=== PATIENT | male | born 1990 | race Caucasian/White ===

== ENCOUNTER 2021-04-23 12:38 | Outpatient (REF) | payer OTHER, SELFPAY | END 2021-04-23 12:39 | disposition home or self-care (01) | LOC: HO.LAB 12:38 | PROVIDERS: Visit Provider Internal Medicine | DX: Z20.822 Contact with and (suspected) exposure to COVID-19 (principal) | CPT/HCPCS: C9803; U0003; U0005 ==

== ENCOUNTER 2022-01-03 09:06 | Emergency (ER) | payer SELFPAY ==
--- NOTE | ~2022-01-03 | US_ITS ---
EXAMINATION: UNILATERAL TRIPLEX SCANNING OF THE RIGHT LOWER EXTREMITY CLINICAL INFORMATION: Right lower extremity swelling. COMPARISON: None. TECHNIQUE: Color-flow triplex imaging with spectral analysis and compression Doppler were performed on the right lower extremity. FINDINGS: Respiratory variation, normal compression and augmented flow are noted throughout the lower extremity. The visualized common femoral vein, superficial femoral vein, profunda femoral vein, popliteal vein and mid calf peroneal and posterior tibial venous segments show no evidence of deep venous thrombosis. There is no Mcgee's cyst. US/US venous duplex LE RT IMPRESSION: Normal triplex scan without evidence of deep venous thrombosis involving the right lower extremity. Incidental mildly enlarged lymph node in the right groin.
[2022-01-03 09:09] VITALS: BP 132/88; PULSE 84; RESP 17; TEMP 35.7; O2SAT 98; BMI 40.4
--- NOTE | 2022-01-03 09:32 | ED.GENADULT ---
HPI - General Adult General Chief complaint: General Medical Stated complaint: r leg swelling pain Time Seen by Provider: 01/03/22 09:19 Source: patient Mode of arrival: ambulatory Limitations: no limitations History of Present Illness HPI narrative: 31 yo male who is overweight here with reports of right calf pain, swelling and redness. Patient reports he had a subjective fever Wednesday evening which was intermittent x several days. Wednesday he started to notice some pain/swelling in the leg. No known injury, trauma, wound to the leg. He does work in construction. He wears boots normally. He is quite active. No recent travel. No SOB, CP. No family history of DVT/PE. Related Data Previous Rx's Medication Instructions Recorded doxycycline monohydrate 100 mg 100 mg PO BID #20 tab 01/03/22 tablet Allergies Allergy/AdvReac Type Severity Reaction Status Date / Time No Known Allergies Allergy Unverified 06/20/20 16:10 Review of Systems Review of Systems: Yes all other systems are reviewed and are negative Constitutional: Constitutional: Reports no additional constitutional complaints, Denies body ache(s), Denies chills, Reports fever(s) (subjective ), Denies headache(s) and Denies weakness Eyes: Eyes: Reports no additional eye complaints and Denies change in vision ENT: Reports system reviewed and no additional complaints, except as documented, Denies dizziness, Denies headache(s), Denies nasal congestion, Denies nasal discharge and Denies neck pain Cardiovascular: Cardiovascular: Reports no additional cardiovascular complaints, Denies chest pain, Reports leg edema and Denies dyspnea Respiratory: Respiratory: Reports no additional respiratory complaints, Denies cough and Denies dyspnea Gastrointestinal: Gastrointestinal: Reports no additional gastrointestinal complaints, Denies abdominal pain, Denies diarrhea, Denies nausea and Denies vomiting Genitourinary: Genitourinary: Denies urinary incontinence Musculoskeletal: Musculoskeletal: Reports no additional musculoskeletal complaints, Denies back pain, Denies arthralgias, Denies joint swelling, Denies neck pain, Denies numbness and Denies tingling Integumentary/Breasts: Skin/Breast: Reports system reviewed and no additional complaints, except as docu, Reports swelling, Reports erythema and Denies rash Neurologic: Reports system reviewed and no additional complaints, except as documented, Denies dizziness, Denies headache(s), Denies numbness, Denies tingling and Denies weakness [facility] [place] Past Medical History Attestation statement: The following information was validated with the patient. Source: old records reviewed and nursing notes reviewed Social History Social History Advance Directives: No Advance Directives Information Provided: No Physical Exam ED Vital Signs: Vital Signs - 24 hr 01/03/22 09:09 Temperature 96.3 F L Pulse Rate 84 Respiratory Rate 17 Blood Pressure 132/88 Pulse Oximetry 98 BMI result Body Mass Index 40.4 Const General: cooperative, healthy appearing, comfortable and no acute distress Orientation/consciousness: patient oriented x3 Limitations: no limitations HENMT Head: Yes normal to inspection Ears: hearing grossly normal bilaterally General nose exam: Normal external nose present Face and sinus: Yes normal facial exam Mouth: Normal oral and palatal mucosa present Teeth and gingiva: dentition normal Throat: Yes posterior oropharynx normal Eyes General: appearance normal, both eyes and all related structures Pupils: Equal, round and reactive pupils present Neck Neck: Yes normal visual inspection, Yes full ROM, Yes no lymphadenopathy and Yes no meningeal signs Chest Chest palpation & inspection: normal inspection of the chest Resp Effort & Inspection: normal respiratory effort Auscultation: clear to auscultation bilaterally Cardio Rate: regular rate Rhythm: regular rhythm Peripheral pulses: Peripheral pulses 2+ throughout GI Inspection: Yes normal to inspection Palpation (GI): Soft to palpation and nontender General: Yes no CVA tenderness Back/Spine/Pelvis Back: no CVA tenderness Thoracic/Lumbar Spine: thoracic and lumbar spine normal to inspection Skin General skin exam: no rashes or lesions noted Neuro General: patient oriented x3, moves all extremities and no meningeal signs Cranial nerves: Yes Equal, round and reactive pupils present Extrem Other: Course Course Course Narrative: 31 yo male here with several days of right leg swelling, redness, fever with subjective fevers. Will check US 1015-ultrasound shows no evidence of DVT. Will treat with course of antibiotics for cellulitis. Reviewed worrisome signs and symptoms of when to return to the emergency department. Comfortable discharge home. Medical Decision Making MDM Narrative Medical decision making narrative: DVT, cellulitis Medical Records Medical records reviewed: Yes I reviewed the patient's medical records. Lab Data Lab results reviewed: Yes I reviewed the patient's lab results. Discharge Plan Discharge Clinical Impression: Cellulitis Patient Disposition: Home, Self-Care Instructions: Cellulitis (DC) Additional Instructions: Elevation of the leg Return for increasing redness, swelling, pain, or fever >100.4 Your ultrasound today show normal blood flow with no blood clot Prescriptions: New doxycycline monohydrate 100 mg tablet 100 mg PO BID Qty: 20 0RF Referrals: Physician,None [Primary Care Provider] - 2 days
== END 2022-01-03 10:27 | disposition home or self-care (01) ==
PROVIDERS: Emergency Provider Emergency Medicine
DX: L03.115 Cellulitis of right lower limb (principal); M79.661 Pain in right lower leg
CPT/HCPCS: 93971; 99283; 99284

== ENCOUNTER 2022-01-18 07:35 | Emergency (ER) | payer SELFPAY ==
--- NOTE | ~2022-01-18 | US_ITS ---
EXAMINATION: RIGHT LOWER EXTREMITY VENOUS ULTRASOUND CLINICAL INFORMATION: Right lower extremity swelling. COMPARISON: 01/03/2022. TECHNIQUE: Doppler spectral analysis and color flow Doppler imaging was performed of the right lower extremity. Compression maneuvers were performed. FINDINGS: The right common femoral, femoral, and popliteal veins were well-identified and demonstrate normal compressibility and color fill-in. Imaged posterior tibial vein is patent. US/US venous duplex LE RT IMPRESSION: No evidence for right lower extremity deep vein thrombosis.
--- NOTE | ~2022-01-18 | US_ITS ---
EXAMINATION: US RIGHT LOWER EXTREMITY CLINICAL INFORMATION: Posterior calf redness COMPARISON: None TECHNIQUE: Focused grayscale and color Doppler evaluation was performed. US/US extremity nonvascular FINDINGS/IMPRESSION: There is reticulation and edema of the subcutaneous tissues. No evidence of hyperemia or focal fluid collection.
[2022-01-18 07:44] VITALS: BP 160/95; PULSE 80; RESP 16; TEMP 36.6; O2SAT 97; BMI 41.8
--- NOTE | 2022-01-18 10:15 | ED.SKABFB ---
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 No trauma. Patient was seen here 01/03/2022 diagnosis cellulitis, DVT was ruled out, patient was put on doxycycline. Patient states he finished doxycycline 5 days ago, and the redness went away, except for an area in his posterior right calf, where it had startes. The last few days the redness has returned. States his leg is less swollen than it was when he was seen in early January. Related Data Previous Rx's Medication Instructions Recorded doxycycline monohydrate 100 mg 100 mg PO BID #20 tab 01/03/22 tablet cephalexin 500 mg capsule 500 mg PO QID 7 Days #28 cap 01/18/22 doxycycline hyclate 100 mg tablet 100 mg PO BID 10 Days #20 tab 01/18/22 Allergies Allergy/AdvReac Type Severity Reaction Status Date / Time No Known Allergies Allergy Verified 01/18/22 07:43 Review of Systems Constitutional: Constitutional: Denies body ache(s), Denies chills, Denies fatigue, Denies fever(s), Denies headache(s), Denies malaise and Denies weakness Eyes: Eyes: Denies diplopia ENT: Denies vertigo, Denies dizziness, Denies headache(s) and Denies throat swelling Cardiovascular: Cardiovascular: Denies chest pain, Denies syncope, Denies leg edema, Denies lightheadedness, Denies Loss of Consciousness, Denies palpitations and Denies dyspnea Respiratory: Respiratory: Denies chest congestion, Denies cough and Denies dyspnea Gastrointestinal: Gastrointestinal: Reports abdominal pain, Denies hematochezia, Denies constipation, Denies diarrhea and Denies vomiting Musculoskeletal: Comments: Right lower extremities swelling Integumentary/Breasts: Skin/Breast: Reports erythema and Reports skin swelling Neurologic: Denies confusion, Denies vertigo, Denies dizziness, Denies syncope, Denies headache(s) and Denies weakness Psychiatric: Psychiatric: Denies anxiety, Denies confusion and Denies depression Endocrine: Endocrine: Denies fatigue and Denies palpitations Allergic/Immunologic: Allergic/Immunologic: Denies throat swelling PMFSH Past Medical History Medical History (Updated 01/18/22 @ 11:13 by SANDY Urbina) No known health problems Social History Social History Advance Directives: No Advance Directives Information Provided: No Physical Exam Vital Signs: Vital Signs: Last Vital Signs Temp 97.8 F 01/18/22 07:44 Pulse 80 01/18/22 07:44 Resp 16 01/18/22 07:44 BP 160/95 H 01/18/22 07:44 Pulse Ox 97 01/18/22 07:44 BMI result Body Mass Index 41.8 Const: General: No confusion Nutritional Appearance: well nourished Orientation/consciousness: No confusion Limitations: no limitations Eyes: Conjunctivae: conjunctivae normal Pupils: Equal, round and reactive pupils present EOM: EOMs intact bilaterally Neck: Neck: Yes full ROM, Yes no lymphadenopathy and Yes supple Resp: Effort & Inspection: normal respiratory effort and able to speak in complete sentences Auscultation: clear to auscultation bilaterally, no crackles, no rales, no rhonchi and no wheezes Cardio: Rate: regular rate Rhythm: regular rhythm Heart sounds: S1 normal heart sound present and S2 normal heart sound present GI: Inspection: Yes normal to inspection Palpation (GI): Soft to palpation, nontender, no guarding and not rigid Percussion: Yes normal to percussion Auscultation: normal bowel sounds Skin: Other: There is an area of induration that is red warm and painful in posterior right calf. Right calf larger than left, right calf mildly erythematous anteriorly Neuro: General: No confusion Cranial nerves: Yes Equal, round and reactive pupils present Extrem: Right lower extremity: full ROM, normal capillary refill and lower leg Details: erythema, tenderness Location: of the posterior calf, localized swelling (posterior) Location: of the proximal lower leg and warmth (posterior calf); Negative for no pitting edema and no non-pitting edema; No no cyanosis and no edema Psych: Appearance: grossly normal Affect: normal affect Attitude: cooperative Thought process: Normal thought process present Course Course Course Narrative: 31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 There is an area of induration that is warm and erythematous in posterior right calf. Very tender to palpate. There is a firm mass under the skin, suspicion for abscess Will rule out DVT, will get ultrasound to evaluate for abscess. Reevaluation(s) Reevaluation #1: No evidence of DVT US/US extremity nonvascular FINDINGS/IMPRESSION: There is reticulation and edema of the subcutaneous tissues. ? No evidence of hyperemia or focal fluid collection. There is no drainable abscess and posterior right calf, area is indurated. Counseled warm moist compresses, will restart doxycycline, will include cephalexin, gave return precautions if worsening pain, swelling, fevers Discharge Plan Discharge Clinical Impression: Cellulitis Patient Disposition: Home, Self-Care Instructions: Cellulitis (ED) Additional Instructions: Please apply warm moist compress to the area on the back of your right calf 4 times a day for 50 minutes for the next 3 or 4 days. Please take antibiotics as prescribed. Please elevate your leg when you are not working. Please return to emergency room if the area gets larger, more painful, or if you have fevers, or for any other new or concerning symptoms. Prescriptions: New doxycycline hyclate 100 mg tablet 100 mg PO BID 10 Days Qty: 20 0RF cephalexin 500 mg capsule 500 mg PO QID 7 Days Qty: 28 0RF No Action doxycycline monohydrate 100 mg tablet 100 mg PO BID Qty: 20 0RF Stand Alone Forms: Work/School Release
== END 2022-01-18 11:22 | disposition home or self-care (01) ==
PROVIDERS: Emergency Provider Emergency Medicine
DX: L03.115 Cellulitis of right lower limb (principal); M79.89 Other specified soft tissue disorders
CPT/HCPCS: 76882; 93971; 99283; 99284

== ENCOUNTER 2022-02-02 13:27 | Emergency (ER) | payer SELFPAY ==
[2022-02-02 14:45] VITALS: BP 141/79; PULSE 102; RESP 16; TEMP 36.6; O2SAT 98; BMI 43.2
== END 2022-02-02 20:31 | disposition left against medical advice (07) ==
LOC: HO.ED 20:16
PROVIDERS: Emergency Provider Emergency Medicine
DX: R60.0 Localized edema (principal); M79.604 Pain in right leg
CPT/HCPCS: 99281

== ENCOUNTER 2022-02-07 11:10 | Emergency (ER) | payer SELFPAY ==
--- NOTE | ~2022-02-07 | US_ITS ---
EXAMINATION: US VENOUS ULTRASOUND WITH DOPPLER LOWER EXTREMITY, RIGHT CLINICAL INFORMATION: Swelling COMPARISON: None TECHNIQUE: Ultrasound of the deep veins is performed from the hip to the calf with compression sonography and color and pulse Doppler assessment. Spectral analysis with color-flow imaging is performed. FINDINGS: There is normal venous compression and respiratory variation and augmented flow. The visualized common femoral vein, superficial femoral vein, profunda femoral vein, popliteal vein, and the trifurcation region shows no evidence of deep venous thrombosis. There is no significant popliteal fossa cyst. Borderline enlarged right inguinal lymph node measure about 3.1 x 1.8 x 0.9 cm. If the patient's symptoms persist, followup ultrasound in 5 days 7 days might be of value to exclude proximal propagation from a non-visualized calf vein. US/US venous duplex LE RT IMPRESSION: No DVT demonstrated in the right lower extremity. Borderline enlarged right inguinal lymph node 3.1 x 1.8 x 0.9 cm. Clinical correlation recommended.
[2022-02-07 11:31] VITALS: BP 154/91; PULSE 90; RESP 18; TEMP 37; O2SAT 97; BMI 41.8
[2022-02-07 13:28] LABS: MANUAL DIFF FLAG NO
[2022-02-07 13:32] LABS: Basophils Percent Auto 0.5 % (0-2); Eosinophils Absolute Auto 0.1 X10*3/uL (0.0-0.4); Eosinophils Percent Auto 1.2 % (0-4); Hematocrit 42.4 % (42.0-52.0); Hemoglobin 14.5 g/dl (14.0-18.0); Imm Gran Abs Auto 0.01 X10*3/uL (0.00-0.03); Imm Gran Pct Auto 0.2 % (0.0-0.4); Lymphocytes Absolute Auto 1.5 X10*3/uL (1.2-4.9); Lymphocytes Percent Auto 23.2 % (20-40); Mean Corpuscular HGB Conc 34.2 g/dl (31.0-36.0); Mean Corpuscular Hemoglobin 29.4 pg (27.0-33.0); Mean Corpuscular Volume 85.8 fL (80.0-98.0); Mean Platelet Volume 9.6 fL (9.4-12.4); Monocytes Absolute Auto 0.5 X10*3/uL (0.1-1.2); Monocytes Percent Auto 8.3 % (2-11); Neutrophils Absolute Auto 4.3 x10*3/uL (2.0-8.3); Neutrophils Percent Auto 66.6 % (45-73); Platelet Count 231 X10*3/uL (160-400); Red Blood Count 4.94 X10*6/uL (4.60-5.80); Red Cell Distribution Width 12.6 % (11.0-16.0); White Blood Count 6.5 X10*3/uL (4.8-10.8)
[2022-02-07 13:44] LABS: Anion Gap 11 (12-20); Blood Urea Nitrogen 14 mg/dL (9-16); Calcium 9.8 mg/dL (8.4-10.2); Carbon Dioxide 26 mmol/L (22-29); Chloride 106 mmol/L (96-108); Creatinine Clr Calc Pharmacy 153.5; Estimated Glomerular Filt Rate > 60; Glucose Random 92 mg/dL (60-115); Potassium 4.2 mmol/L (3.3-5.1); Sodium 139 mmol/L (135-145)
--- NOTE | 2022-02-07 14:14 | ED_ITS ---
HPI - General Adult General Chief complaint: Skin/Abscess/Foreign Body Stated complaint: cellulitis in R leg Time Seen by Provider: 02/07/22 13:46 Source: patient Mode of arrival: ambulatory Limitations: no limitations History of Present Illness HPI narrative: On a 11-year-old male presenting for the right lower extremity by swelling is had for the past month. This swelling edema any worse, but the battery. The phone number patient walked a year 01/03/2022, 01/18/2021 onto, diagnosed with right lower extremity cellulitis, placed on doxy and Keflex ago. I still present he really liked around the apical with a problem 2021, and has not had a red urine or any lesion on his posterior right calf that is now resolved. Both the prior visit the patient had a negative ultrasound for DVT. Today patient's right foot the more swollen Related Data Previous Rx's Medication Instructions Recorded doxycycline monohydrate 100 mg 100 mg PO BID #20 tab 01/03/22 tablet cephalexin 500 mg capsule 500 mg PO QID 7 Days #28 cap 01/18/22 doxycycline hyclate 100 mg tablet 100 mg PO BID 10 Days #20 tab 01/18/22 compr.stocking,knee,long,x-lrg #2 ea 02/07/22 Allergies Allergy/AdvReac Type Severity Reaction Status Date / Time No Known Allergies Allergy Verified 01/18/22 07:43 Review of Systems Constitutional: Constitutional: Denies body ache(s), Denies chills, Denies fatigue, Denies fever(s), Denies headache(s), Denies malaise and Denies weakness Eyes: Eyes: Denies diplopia ENT: Denies vertigo, Denies dizziness, Denies headache(s) and Denies throat swelling Cardiovascular: Cardiovascular: Denies chest pain, Denies syncope, Denies leg edema, Denies lightheadedness, Denies Loss of Consciousness, Denies palpitations and Denies dyspnea Respiratory: Respiratory: Denies chest congestion, Denies cough and Denies dyspnea Gastrointestinal: Gastrointestinal: Denies abdominal pain, Denies hematochezia, Denies constipation, Denies diarrhea and Denies vomiting Musculoskeletal: Comments: Right calf and foot swelling Integumentary/Breasts: Skin/Breast: Denies change in pigmentation, Denies erythema, Denies rash, Denies skin pain, Reports skin swelling and Denies wounds Neurologic: Denies confusion, Denies vertigo, Denies dizziness, Denies syncope, Denies headache(s) and Denies weakness Psychiatric: Psychiatric: Denies anxiety, Denies confusion and Denies depression Endocrine: Endocrine: Denies fatigue and Denies palpitations Allergic/Immunologic: Allergic/Immunologic: Denies throat swelling PMFSH Past Medical History Medical History (Updated 02/07/22 @ 15:57 by SANDY Urbina) Edema No known health problems Social History Social History Advance Directives: No Advance Directives Information Provided: No Physical Exam ED Vital Signs: Vital Signs - 24 hr 02/07/22 11:31 Temperature 98.6 F Pulse Rate 90 Respiratory Rate 18 Blood Pressure 154/91 H Pulse Oximetry 97 BMI result Body Mass Index 41.8 Const General: No confusion Nutritional Appearance: well nourished Orientation/consciousness: No confusion Limitations: no limitations Eyes Conjunctivae: conjunctivae normal Pupils: Equal, round and reactive pupils present EOM: EOMs intact bilaterally Neck Neck: Yes full ROM, Yes no lymphadenopathy and Yes supple Resp Effort & Inspection: normal respiratory effort and able to speak in complete sentences Auscultation: clear to auscultation bilaterally, no crackles, no rales, no rhonchi and no wheezes Cardio Rate: regular rate Rhythm: regular rhythm Heart sounds: S1 normal heart sound present and S2 normal heart sound present GI Inspection: Yes normal to inspection Palpation (GI): Soft to palpation, nontender, no guarding and not rigid Percussion: Yes normal to percussion Auscultation: normal bowel sounds Skin Other: Swollring and nonpitting edema right calf right foot No redness, or warmth, no lesions noted Neuro General: No confusion Cranial nerves: Yes Equal, round and reactive pupils present Extrem Right lower extremity: full ROM, normal capillary refill, edema Details: non- pitting and 2+, lower leg Details: non-pitting edema Details: 2+; Negative for no erythema and no tenderness and foot Details: edema Location: diffusely Details: non-pitting and 2+; Negative for no unusual warmth Psych Appearance: grossly normal Affect: normal affect Attitude: cooperative Thought process: Normal thought process present Course Course Course Narrative: Patient has no risk factors for deep space infection, is not tender when I palpate his posterior right calf, no leukocytosis, no fevers, patient is not IV drug user Normal chemistry and hematology, patient has no BNP, CRP is not elevated Ultrasound shows no DVT Will prescribe compression stocking, have patient follow-up with vascular Counseled to return to emergency room chest pain, shortness of breath, worsening leg swelling or leg pain Reevaluation(s) Reevaluation #1: US/US venous duplex LE RT IMPRESSION: No DVT demonstrated in the right lower extremity. ? Borderline enlarged right inguinal lymph node 3.1 x 1.8 x 0.9 cm. Clinical correlation recommended. Medical Decision Making Lab Data Result diagrams: 02/07/22 13:23 02/07/22 13:23 Labs: Lab Results 02/07/22 02/07/22 02/07/22 Range/Units 13:23 13:23 13:23 WBC 6.5 (4.8-10.8) X10*3/uL RBC 4.94 (4.60-5.80) X10*6/uL Hgb 14.5 (14.0-18.0) g/dl Hct 42.4 (42.0-52.0) % MCV 85.8 (80.0-98.0) fL MCH 29.4 (27.0-33.0) pg MCHC 34.2 (31.0-36.0) g/dl RDW 12.6 (11.0-16.0) % Plt Count 231 (160-400) X10*3/uL MPV 9.6 (9.4-12.4) fL Immature Gran % (Auto) 0.2 (0.0-0.4) % Neut % (Auto) 66.6 (45-73) % Lymph % (Auto) 23.2 (20-40) % [place] % (Auto) 8.3 (2-11) % Eos % (Auto) 1.2 (0-4) % Baso % (Auto) 0.5 (0-2) % Lymph # (Auto) 1.5 (1.2-4.9) X10*3/uL [place] # (Auto) 0.5 (0.1-1.2) X10*3/uL Eos # (Auto) 0.1 (0.0-0.4) X10*3/uL Baso # (Auto) 0.0 (0.0-0.2) X10*3/uL Abs Immat Gran (auto) 0.01 (0.00-0.03) X10*3/uL Absolute Neuts (auto) 4.3 (2.0-8.3) x10*3/uL Absolute Nucleated RBC 0.000 (0.0-0.012) X10*3/uL Nucleated RBC % (auto) 0.0 (0.0-0.2) /100WBC ESR 1 (0-15) MM/HR Sodium 139 (135-145) mmol/L Potassium 4.2 (3.3-5.1) mmol/L Chloride 106 (96-108) mmol/L Carbon Dioxide 26 (22-29) mmol/L Anion Gap 11 L (12-20) BUN 14 (9-16) mg/dL Creatinine 1.00 (0.5-1.4) mg/dL Estim Creat Clear Calc 153.5 Estimated GFR > 60 Random Glucose 92 (60-115) mg/dL Calcium 9.8 (8.4-10.2) mg/dL C-Reactive Protein 0.19 (< or = 0.50) mg/dL B-Natriuretic Peptide (<100) pg/mL 02/07/22 Range/Units 13:23 WBC (4.8-10.8) X10*3/uL RBC (4.60-5.80) X10*6/uL Hgb (14.0-18.0) g/dl Hct (42.0-52.0) % MCV (80.0-98.0) fL MCH (27.0-33.0) pg MCHC (31.0-36.0) g/dl RDW (11.0-16.0) % Plt Count (160-400) X10*3/uL MPV (9.4-12.4) fL Immature Gran % (Auto) (0.0-0.4) % Neut % (Auto) (45-73) % Lymph % (Auto) (20-40) % [place] % (Auto) (2-11) % Eos % (Auto) (0-4) % Baso % (Auto) (0-2) % Lymph # (Auto) (1.2-4.9) X10*3/uL [place] # (Auto) (0.1-1.2) X10*3/uL Eos # (Auto) (0.0-0.4) X10*3/uL Baso # (Auto) (0.0-0.2) X10*3/uL Abs Immat Gran (auto) (0.00-0.03) X10*3/uL Absolute Neuts (auto) (2.0-8.3) x10*3/uL Absolute Nucleated RBC (0.0-0.012) X10*3/uL Nucleated RBC % (auto) (0.0-0.2) /100WBC ESR (0-15) MM/HR Sodium (135-145) mmol/L Potassium (3.3-5.1) mmol/L Chloride (96-108) mmol/L Carbon Dioxide (22-29) mmol/L Anion Gap (12-20) BUN (9-16) mg/dL Creatinine (0.5-1.4) mg/dL Estim Creat Clear Calc Estimated GFR Random Glucose (60-115) mg/dL Calcium (8.4-10.2) mg/dL C-Reactive Protein (< or = 0.50) mg/dL B-Natriuretic Peptide < 10 (<100) pg/mL Discharge Plan Discharge Clinical Impression: Unilateral edema of lower extremity Patient Disposition: Home, Self-Care Additional Instructions: Please call vascular surgery at the following phone number [phone] I have referred to as well, but if you do not hear from them by Wednesday, please give them a call. I have prescribed compression stocking, please use that on your leg Please return to be seen if you have worsening swelling, pain, redness, warmth, fevers, chest pain, shortness breath, or any other new or concerning symptoms Prescriptions: New (DME) compr.stocking,knee,long,x-lrg Misc See Rx Instructions .Route Qty: 2 0RF Rx Instructions: As directed No Action doxycycline monohydrate 100 mg tablet 100 mg PO BID Qty: 20 0RF doxycycline hyclate 100 mg tablet 100 mg PO BID 10 Days Qty: 20 0RF cephalexin 500 mg capsule 500 mg PO QID 7 Days Qty: 28 0RF Referrals: Abundio Cervantes MD [Physician] -
[2022-02-07 14:41] LABS: C Reactive Protein 0.19 mg/dL (< or = 0.50)
[2022-02-07 14:52] LABS: B Type Natriuretic Peptide < 10 pg/mL (<100)
[2022-02-07 15:24] LABS: Erythrocyte Sedimentation Rate 1 MM/HR (0-15)
== END 2022-02-07 16:10 | disposition home or self-care (01) ==
PROVIDERS: Physician Assistant; Emergency Provider Emergency Medicine Emergency Medical Services
DX: R60.0 Localized edema (principal)
CPT/HCPCS: 36415; 80048; 83880; 85025; 85652; 86140; 93971; 99283; 99284

== ENCOUNTER 2024-10-24 09:45 | Emergency (ER) | payer OTHER, SELFPAY ==
[2024-10-24 09:56] VITALS: BP 146/89; PULSE 78; RESP 18; TEMP 36.7; O2SAT 98; BMI 44.0
--- NOTE | 2024-10-24 14:14 | ED.BACK ---
HPI - Back Pain/Injury General Chief Complaint: Back Pain/Injury Stated Complaint: Back pain 1 week Time Seen by Provider: 10/24/24 14:20 Related Data Previous Rx's ?Medication ?Instructions ?Recorded doxycycline monohydrate 100 mg 100 mg PO BID #20 tabs 01/03/22 tablet cephalexin 500 mg capsule 500 mg PO QID 7 days #28 caps 01/18/22 doxycycline hyclate 100 mg tablet 100 mg PO BID 10 days #20 tabs 01/18/22 compr.stocking,knee,long,x-lrg #2 ea 02/07/22 cyclobenzaprine 10 mg tablet 10 mg PO TID PRN muscle spasm #10 10/24/24 tabs lidocaine 5 % topical patch 1 patch topical DAILY #15 ea 10/24/24 naproxen 500 mg tablet 500 mg PO BID PRN pain #20 tabs 10/24/24 Allergies Allergy/AdvReac Type Severity Reaction Status Date / Time No Known Allergies Allergy Verified 10/24/24 09:58 [facility] Past Medical History Medical History (Updated 10/24/24 @ 14:18 by SANDY Collado) Edema No known health problems Social History Social History Advance Directives: No Advance Directives Information Provided: Yes Physical Exam Vital Signs: Vital Signs: Last Vital Signs Temp 97.2 F 10/24/24 14:23 Pulse 82 10/24/24 14:23 Resp 20 10/24/24 14:23 BP 154/87 H 10/24/24 14:23 Pulse Ox 98 10/24/24 14:23 O2 Del Method Room Air 10/24/24 14:23 BMI result Body Mass Index 44.0 Course Course Course Narrative: This is a Rapid Medical Examination (RME) performed by Ruiz Rangel PA-C in triage. Full HPI, ROS, assessment and treatment plan per primary provider in the Main ED. Plan: Medical Decision Making Medical Decision Making MDM Narrative: 34 yo male presenting with low back pain for the last 1.5 weeks after crawling into a crawl space. no red flag symptoms of low back pain. exam and clinical presentation most c/w muscle strain and spasm. no emergent need for xray today. will treat for msk pain w/ muscle relaxer, nsaid and lidoderm. encouraged supportive care w/ rest, heat, stretching. encouraged f/u with PCP and possible PT if symptoms persist. patient agrees w/ plan. stable for d/c home. Differential Diagnosis Differential Diagnoses: The differential diagnosis associated with the presentation includes Inflammatory disorders, malignancy, trauma, osteoporosis, nerve root compression, radiculopathy, plexopathy, degenerative disc disease, disc herniation, spinal stenosis, sacroiliac joint dysfunction, facet joint injury, and less likely infection?like abscess or diskitis External Record Review External record reviewed: Prior outpatient labs Tests considered The following testing was considered but not selected: considered low back x-ray but no trauma, no midline tenderness Prescription Management I considered prescription management with: Pain Medication Chronic Conditions Patient?s care impacted by: Other (obesity) Discharge Plan Discharge Clinical Impression: Strain of lumbar region Patient Disposition: Home, Self-Care Instructions: Low Back Strain (ED), Lower Back Exercises (ED) Additional Instructions: Your pain is most likely due to muscle strain and spasm. No bending, lifting or twisting. Use a heating pad several times per day for 20 minutes at a time Take medications as prescribed to help with pain and discomfort. Follow up with your Primary Care Doctor this week. If your pain worsens, if you develop new numbness, tingling, weakness, loss of function or incontinence call 911 or come back to the ER right away for evaluation. Prescriptions: New cyclobenzaprine 10 mg tablet 10 mg PO TID PRN (Reason: muscle spasm) Qty: 10 0RF lidocaine 5 % adhesive patch,medicated 1 patch topical DAILY Qty: 15 0RF Rx Instructions: leave on most painful area for up to 12 hrs naproxen 500 mg tablet 500 mg PO BID PRN (Reason: pain) Qty: 20 0RF No Action doxycycline monohydrate 100 mg tablet 100 mg PO BID Qty: 20 0RF doxycycline hyclate 100 mg tablet 100 mg PO BID 10 Days Qty: 20 0RF cephalexin 500 mg capsule 500 mg PO QID 7 Days Qty: 28 0RF (DME) compr.stocking,knee,long,x-lrg Misc See Rx Instructions .Route Qty: 2 0RF Rx Instructions: As directed Referrals: [facility] Family Medicine [Provider Group] [facility] [Provider Group] Stand Alone Forms: Work/School Release Interventions: ED Discharge Assessment Last Done: 10/24/24 14:23 Discharge Date/Time: 10/24/24 14:24 Print Language: [place]
[2024-10-24 14:15] VITALS: BP 154/87; PULSE 82; RESP 20; TEMP 36.2; O2SAT 98
[2024-10-24 14:23] VITALS: BP 154/87; PULSE 82; RESP 20; TEMP 36.2; O2SAT 98
== END 2024-10-24 14:24 | disposition home or self-care (01) ==
LOC: HO.ED 14:23
PROVIDERS: Emergency Provider Emergency Medicine
DX: S39.012A Strain of muscle, fascia and tendon of lower back, initial encounter (principal); X58.XXXA Exposure to other specified factors, initial encounter; Y93.9 Activity, unspecified; Y92.9 Unspecified place or not applicable; Y99.8 Other external cause status
CPT/HCPCS: 99282; 99283